=== PATIENT | female | born 1975 | race American Indian/Alaskan Native ===

== ENCOUNTER 2018-02-18 09:55 | Emergency (ER) | payer BC ==
[2018-02-18 10:10] VITALS: BP 149/83
--- NOTE | 2018-02-18 10:53 | XRay Report ---
LEFT TOES, 3 VIEWS History: Rule out fracture. Findings: 3 views of the left great toe are presented. No acute osseous abnormality or joint pathology is identified. The soft tissues are unremarkable. Impression: No abnormality identified.
--- NOTE | 2018-02-18 12:52 | Emergency Department Report ---
ED Lower Extremity HPI - General Chief Complaint: Pain General Stated Complaint: INJURED LEFT FOOT Time Seen by Provider: 02/18/18 12:17 Source: patient Mode of arrival: Ambulatory Limitations: Physical Limitation - History of Present Illness Initial Comments: 42-year-old female past medical history none presents with complaint of 4 days of persistent left great toe pain. Patient states that while she was running on a treadmill last she took a break and then suddenly jumped on while the treadmill was running and somehow injured her left great toe. Patient states it was a hyperextension type movements. Patient states pain has gradually increased over the last several days. Patient is ambulatory but states that her left great toe is aching. Denies fevers or chills. States she has seen some swelling at base of left great toe. MD Complaint: other (left great toe pain) Onset/Timin -: days(s) Injury: Toes: Left (left great toe) Place: street/outdoors Severity: moderate Severity scale (0 -10): 6 Improves With: NSAID Worsens With: movement, palpation Context: running, walking Associated Symptoms: swelling, ambulatory - Related Data Previous Rx's Medication Instructions Recorded Last Taken Type HYDROcodone/APAP 10-325 [[place] 1 each PO Q4H PRN #20 tablet 11/20/13 Unknown Rx 10-325 mg TAB] Ondansetron [Zofran Odt] 8 mg PO TID PRN #20 tab.rapdis 11/20/13 Unknown Rx metroNIDAZOLE [Flagyl] 500 mg PO BID #14 tablet 11/20/13 Unknown Rx HYDROcodone/APAP 5-325 [[place] 1 each PO Q6HR PRN #16 tablet 11/15/14 Unknown Rx 5/325] Ibuprofen [Motrin] 800 mg PO Q8HR PRN #30 tablet 02/18/18 Unknown Rx Allergies Allergy/AdvReac Type Severity Reaction Status Date / Time doxycycline Allergy Rash Verified 08/08/13 12:03 nitrous oxide [Nitrous Oxide] Allergy Unknown Verified 11/19/13 22:06 ivp dye Allergy Swelling Uncoded 11/14/14 22:20 ED Review of Systems ROS: Stated complaint: INJURED LEFT FOOT Other details as noted in HPI Constitutional: denies: chills, fever Eyes: denies: eye pain, eye discharge, vision change ENT: denies: ear pain, throat pain Respiratory: denies: cough, shortness of breath, wheezing Cardiovascular: denies: chest pain, palpitations Endocrine: no symptoms reported Gastrointestinal: denies: abdominal pain, nausea, diarrhea Genitourinary: denies: urgency, dysuria, discharge Musculoskeletal: as per HPI. denies: back pain, joint swelling, arthralgia Skin: denies: rash, lesions Neurological: denies: headache, weakness, paresthesias Psychiatric: denies: anxiety, depression Hematological/Lymphatic: denies: easy bleeding, easy bruising ED Past Medical Hx - Past Medical History Hx GERD: Yes Hx Headaches / Migraines: Yes (MIGRAINE) Additional medical history: ovarian cyst, ruptured, MVP - Surgical History Hx Cholecystectomy: Yes - Social History Smoking Status: Never Smoker Substance Use Type: None - Medications Home Medications: Home Medications Medication Instructions Recorded Confirmed Last Taken Type HYDROcodone/APAP 10-325 [[place] 1 each PO Q4H PRN #20 tablet 11/20/13 Unknown Rx 10-325 mg TAB] Ondansetron [Zofran Odt] 8 mg PO TID PRN #20 tab.rapdis 11/20/13 Unknown Rx metroNIDAZOLE [Flagyl] 500 mg PO BID #14 tablet 11/20/13 Unknown Rx HYDROcodone/APAP 5-325 [[place] 1 each PO Q6HR PRN #16 tablet 11/15/14 Unknown Rx 5/325] Ibuprofen [Motrin] 800 mg PO Q8HR PRN #30 tablet 02/18/18 Unknown Rx ED Physical Exam - General Limitations: Physical Limitation General appearance: alert, in no apparent distress - Head Head exam: Present: atraumatic, normocephalic - Eye Eye exam: Present: normal appearance - ENT ENT exam: Present: mucous membranes moist - Neck Neck exam: Present: normal inspection - Respiratory Respiratory exam: Present: normal lung sounds bilaterally. Absent: respiratory distress - Cardiovascular Cardiovascular Exam: Present: regular rate, normal rhythm. Absent: systolic murmur, diastolic murmur, rubs, gallop - GI/Abdominal GI/Abdominal exam: Present: soft, normal bowel sounds - Extremities Exam Extremities exam: Present: normal inspection - Expanded Lower Extremity Exam Left Knee exam: Present: normal inspection, full ROM Lower Leg exam: Present: normal inspection, full ROM Ankle exam: Present: normal inspection, full ROM Foot/Toe exam: Present: swelling (mild swelling base of first metatarsal) Neuro vascular tendon exam: Present: no vascular compromise (distal pulses strong to palpation including dorsalis pedis and posterior tibial pulses, capillary refill less than 1 second also) Gait: Positive: antalgic 1 - Slight pain and swelling - Back Exam Back exam: Present: normal inspection - Neurological Exam Neurological exam: Present: alert, oriented X3, CN II-XII intact, normal gait - Psychiatric Psychiatric exam: Present: normal affect, normal mood - Skin Skin exam: Present: warm, dry, intact, normal color. Absent: rash ED Course Vital Signs 02/18/18 10:03 Temperature 98.5 F Pulse Rate 94 H Respiratory 16 Rate Blood Pressure 149/83 O2 Sat by Pulse 98 Oximetry ED Lower Extremity MDM - Medical Decision Making A/P: Left great toe sprain, tender to 1-RICE therapy, Armen wrap, anti-inflammatory 2-follow-up with orthopedics or podiatry 3-left lower barber vomiting neurovascularly intact on exam no signs of infection Critical care attestation.: If time is entered above; I have spent that time in minutes in the direct care of this critically ill patient, excluding procedure time. ED Disposition Clinical Impression: Sprain of left great toe Qualifiers: Encounter type: initial encounter Qualified Code(s): S93.502A - Unspecified sprain of left great toe, initial encounter Disposition: TO HOME OR SELFCARE Is pt being admited?: No Does the pt Need Aspirin: No Condition: Stable Instructions: Foot Sprain (ED) Prescriptions: Ibuprofen [Motrin] 800 mg PO Q8HR PRN #30 tablet PRN Reason: Pain , Severe (7-10) Referrals: LOREN MCGARRY MD [Staff Physician] - 3-5 Days [facility] [Provider Group] - 3-5 Days [facility] [Provider Group] - 3-5 Days Forms: Work/School Release Form(ED) Time of Disposition: 12:52
== END 2018-02-18 13:05 | disposition home or self-care (01) ==
LOC: ED 09:55
DX: S93.502A Unspecified sprain of left great toe, initial encounter (principal); K21.9 Gastro-esophageal reflux disease without esophagitis; G43.909 Migraine, unspecified, not intractable, without status migrainosus; Z90.49 Acquired absence of other specified parts of digestive tract; Z88.1 Allergy status to other antibiotic agents; Z88.8 Allergy status to other drugs, medicaments and biological substances; X58.XXXA Exposure to other specified factors, initial encounter; Y93.A1 Activity, exercise machines primarily for cardiorespiratory conditioning; Y92.89 Other specified places as the place of occurrence of the external cause; Y99.8 Other external cause status
CPT/HCPCS: 99283